=== PATIENT | female | born 1995 | race Two or more races ===

== ENCOUNTER 2020-09-22 14:35 | Inpatient (IN) | payer OTHER ==
[~2020-09-22] VITALS: Ht 154.9 cm; Wt 2.7 kg
[~2020-09-22 14:35] MED LIST: ANAprox Ds 550mg TAB PO; CEFADROXIL500 MG PO; OXYC1TAB9 PO; PRENATAL; ZYRTEC10 MG PO
== END 2020-09-26 17:27 | disposition home or self-care (01) | DRG 785 ==
LOC: OB/GYN 09-24 07:00 → O/R 09-24 08:30 → OB/GYN 09-24 08:30
PROVIDERS: ADMIT Obstetrics & Gynecology; ATTEND Obstetrics & Gynecology
PROC: 0UB70ZZ Excision of Bilateral Fallopian Tubes, Open Approach (ICD-10-PCS; 2020-09-24)
PROC: 4A1HXFZ Monitoring of Products of Conception, Cardiac Rhythm, External Approach (ICD-10-PCS; 2020-09-24)
PROC: 10D00Z1 Extraction of Products of Conception, Low, Open Approach (ICD-10-PCS; principal; 2020-09-24 07:00)
DX: O34.211 Maternal care for low transverse scar from previous cesarean delivery (principal); O32.1XX0 Maternal care for breech presentation, not applicable or unspecified; Z3A.38 38 weeks gestation of pregnancy; Z37.0 Single live birth; O34.13 Maternal care for benign tumor of corpus uteri, third trimester; D25.9 Leiomyoma of uterus, unspecified; Z20.828 Contact with and (suspected) exposure to other viral communicable diseases; Z30.2 Encounter for sterilization